=== PATIENT | male | born 1975 | race Caucasian/White ===

== ENCOUNTER 2019-06-24 21:52 | Emergency (ER) | payer OTHER, SELFPAY ==
--- NOTE | ~2019-06-24 | XR_ITS ---
EXAMINATION: XR hand LT min 3V DATE: 06/24/2019 22:13 INDICATION: Left hand and wrist pain post fall TECHNIQUE: Posteroanterior, oblique and lateral views of the left hand were obtained. COMPARISON: None. FINDINGS: Nondisplaced intra-articular fracture at the palmar/ulnar base of the first metacarpal. Alignment rem ains near-anatomic. No other fractures identified. Mild osteoarthritis at the triscaphe, first carpom etacarpal and first interphalangeal joints. Multiple surgical clips along the radial aspect of the wr ist and distal forearm. IMPRESSION: 1. Nondisplaced intra-articular fracture at the palmar/ulnar base of the first metacarpal (Dawson fr acture). Reviewed, dictated and finalized at location A. GN DRAFTER IMPRESSION: 1. Nondisplaced intra-articular fracture at the palmar/ulnar base of the first metacarpal (Dawson fracture).
[2019-06-24 22:00] VITALS: BP 129/86; PULSE 90; RESP 16; TEMP 36.7; O2SAT 98
--- NOTE | 2019-06-24 23:44 | ED.UPPEXIN ---
HPI - Extremity Injury (Upper) General Chief Complaint: Extremity Injury, Upper Stated Complaint: left hand pain Time Seen by Provider: 06/24/19 23:29 Source: patient and RN notes reviewed Mode of arrival: wheelchair Limitations: no limitations History of Present Illness HPI narrative: Pt is a 44 y/o male who presents to the ED with c/o lt hand injury happening earlier today. He notes that he was shutting the tailgate on his truck earlier today when he fell and used his lt hand to catch himself on the ground. Pt reports increasing pain and swelling around his lt thumb s/p the fall. He notes that his pain extends from his lt wrist into his lt thumb. Pt denies any numbness/tingling. MD complaint: injury to: left and hand Context: fall Associated symptoms: other (swelling around lt thumb) Related Data Allergies Allergy/AdvReac Type Severity Reaction Status Date / Time No Known Allergies Allergy Unverified 06/25/19 00:01 Review of Systems Review of Systems: All systems reviewed & are unremarkable except as noted in HPI and below Musculoskeletal: Musculoskeletal: Reports other (lt thumb pain radiating into lt wrist; swelling around lt thumb) Neurologic: Denies numbness and Denies tingling PMFSH Past Medical History Medical History CVA (cerebral vascular accident) Heart attack HTN (hypertension) Knee fracture, right Surgical History Surgical History Hx of AKA (above knee amputation) lt leg Hx of vascular surgery lt arm Social History Social History Smoking status: Smoker, status unknown Alcohol intake: current Exam Const: General: healthy appearing and no acute distress Nutritional Appearance: well nourished HENMT: Head: atraumatic Resp: Effort & Inspection: normal respiratory effort Auscultation: clear to auscultation bilaterally Cardio: Rate: regular rate Rhythm: regular rhythm Heart sounds: no murmurs Back/Spine/Pelvis: Back: other (Full ROM) Skin: General skin exam: normal color, dry skin and other (warm) Neuro: General: patient oriented x3 (alert) Speech: normal speech Extrem: General: other (lt AKA; healing surgical scar over length of lt forearm) Left upper extremity: hand (significant contracture of lt hand) tenderness (tenderness over 1st MCP joint) Psych: Mental Status: mental status grossly normal Affect: normal affect Course Vital Signs Vital signs: Vital Signs Temperature 36.7 C 06/24/19 22:00 Pulse Rate 90 06/24/19 22:00 Respiratory Rate 16 06/24/19 22:00 Blood Pressure 129/86 06/24/19 22:00 Pulse Oximetry 98 06/24/19 22:00 Temperature 36.7 C 06/24/19 22:00 Pulse Rate 78 06/25/19 00:25 Respiratory Rate 18 06/25/19 00:25 Blood Pressure 116/70 06/25/19 00:25 Pulse Oximetry 98 06/25/19 00:25 Procedures Orthopedic Splinting/Casting Injury #1: Splinting/Casting Date: 06/25/19 Side: left Upper Extremity Injury Location: hand OCL: thumb spica Pre-Procedure Neuro Vascular Exam: normal Post-Procedure Neuro Vascular Exam: normal MDM - Extremity Injury (Upper) Imaging Data Radiologist's impression: Impressions Hand X-Ray 06/24/19 22:19 IMPRESSION: 1. Nondisplaced intra-articular fracture at the palmar/ulnar base of the first metacarpal (Dawson fracture). Discharge Plan Discharge Clinical Impression: Dawson's fracture of base of metacarpal bone of left thumb Qualifiers: Encounter type: initial encounter Fracture type: closed Qualified Code(s): S62.212A - Dawson's fracture, left hand, initial encounter for closed fracture Patient Disposition: Home, Self-Care Condition: Stable Instructions: Thumb Fracture (ED) Prescriptions: New hydrocodone-acetaminophen [[place]] 5-325 mg tablet 1 tablet PO Q4H PRN (Reason: pain) Qty
[2019-06-24 23:57] VITALS: RESP 20
[2019-06-24] MEDS: ACETAMINOPHEN 500 MG TABLET 1000 MG PO (23:58)
[2019-06-25 00:25] VITALS: BP 116/70; PULSE 78; RESP 18; O2SAT 98
== END 2019-06-25 00:25 | disposition home or self-care (01) ==
PROVIDERS: Emergency Provider Emergency Medicine
DX: S62.212A Bennett's fracture, left hand, initial encounter for closed fracture (principal); I25.2 Old myocardial infarction; I10 Essential (primary) hypertension; Z86.73 Personal history of transient ischemic attack (TIA), and cerebral infarction without residual deficits; W01.0XXA Fall on same level from slipping, tripping and stumbling without subsequent striking against object, initial encounter
CPT/HCPCS: 29125; 73130; 99284; A9270

== ENCOUNTER 2019-07-11 12:10 | Outpatient (CLI) | payer OTHER, SELFPAY ==
--- NOTE | ~2019-07-11 | XR_ITS ---
XR wrist LT min 3V DATE: 07/11/2019 12:35 INDICATION: Fracture of base of left thumb TECHNIQUE: 5 views COMPARISON: 06/24/2019 left hand FINDINGS: Surgical clips are noted along the lateral distal forearm and wrist. There is a linear intra-articular fracture of the base of the first metacarpal bone without significa nt displacement or angulation. No other fracture or dislocation, periosteal reaction or bone destruct ion. Joint spaces are preserved. No erosive change or chondrocalcinosis. IMPRESSION: Linear intra-articular fracture of the base of the first metacarpal bone Reviewed, dictated and finalized at location B. [employer] NURSE PRACTITIONER
== END 2019-07-11 12:11 | disposition home or self-care (01) ==
PROVIDERS: PCP Internal Medicine; Visit Provider Surgery Plastic and Reconstructive Surgery
DX: S62.235A Other nondisplaced fracture of base of first metacarpal bone, left hand, initial encounter for closed fracture (principal); X58.XXXA Exposure to other specified factors, initial encounter
CPT/HCPCS: 73110

== ENCOUNTER 2021-10-10 18:20 | Emergency (ER) | payer OTHER, SELFPAY ==
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
[2021-10-10 18:22] VITALS: BP 152/95; PULSE 86; RESP 18; TEMP 36; O2SAT 98
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
[2021-10-10 19:50] LABS: Anion Gap 7 mmol/L (8-16); Blood Urea Nitrogen 3 mg/dL (9-20); Calcium 9.1 mg/dL (8.4-10.2); Carbon Dioxide 27 mmol/L (22-30); Chloride 103 mmol/L (98-107); Estimated CRCL calculation 139 ml/min; Estimated Glomerular Filt Rate > 60; Glucose 99 mg/dL (65-110); Potassium 4.5 mmol/L (3.4-5.0); Sodium 137 mmol/L (137-145)
--- NOTE | 2021-10-10 20:24 | PC.NURSE ---
Purple tube redrawn at request of lab.
[2021-10-10 20:25] LABS: Basophils Percent Auto 0.4 % (0.2-1.2); Eosinophils Absolute Auto 0.4 K/mm3 (0-0.3); Eosinophils Percent Auto 3.5 % (0-4.4); Hematocrit 43.7 % (42.0-52.0); Hemoglobin 14.8 g/dL (14.0-18.0); Immature Granulocyte Absolute 0.02 K/mm3 (0.00-0.031); Immature Granulocyte Percent A 0.2 % (0-0.5); Lymphocytes Absolute Auto 2.34 K/mm3 (0.9-3.2); Lymphocytes Percent Auto 23.7 % (18.3-44.2); Mean Corpuscular HGB Conc 33.9 g/dl (32-36); Mean Corpuscular Hemoglobin 31.8 pg (26-34); Mean Platelet Volume 10.3 fl (7.4-10.4); Monocytes Absolute Auto 0.8 K/mm3 (0.1-0.6); Neutrophils Absolute Auto 6.3 K/mm3 (1.3-6.7); Neutrophils Percent Auto 64.2 % (45.5-73.1); Platelet Count Result 201 k/mm3 (150-375); Red Blood Count 4.65 M/mm3 (4.6-6.20); Red Cell Distribution Width 12.7 % (11.5-14.5); White Blood Count 9.9 K/mm3 (4.5-10.0)
--- NOTE | 2021-10-10 22:55 | PC.NURSE ---
This RN went in to obtain covid swab from pt. Pt stated to this RN that he needed to go home before he went anywhere, and would like an update on plan of care. CHARLI Barboza on phone at present. Pt's RN notified and in room to update pt. Covid swab NOT obtained at this time.
[2021-10-10 23:02] VITALS: BP 138/93; PULSE 80; RESP 16; O2SAT 95
[2021-10-10] MEDS: AMOXICILLIN/CLAVULANATE K 875-125 MG TAB 1 TABLET PO (23:15)
[2021-10-10 23:23] VITALS: BP 159/98; PULSE 79; RESP 18; O2SAT 95
== END 2021-10-10 23:24 | disposition home or self-care (01) ==
PROVIDERS: Physician Assistant; Emergency Provider General Practice; PCP Internal Medicine
DX: L08.9 Local infection of the skin and subcutaneous tissue, unspecified (principal); J32.9 Chronic sinusitis, unspecified; I25.2 Old myocardial infarction; I10 Essential (primary) hypertension; F17.200 Nicotine dependence, unspecified, uncomplicated
CPT/HCPCS: 36415; 70487; 80048; 85025; 99284; A9270; Q9967